=== PATIENT | female | born 1965 | race Hispanic/Latino ===

== ENCOUNTER 2018-08-23 22:02 | Emergency (ER) | payer OTHER ==
[~2018-08-23 22:02] MED LIST: BACL5TAB PO; CALC0.253 PO; LEVO200T5 PO; MECL-111 PO
== END 2018-08-24 00:05 | disposition home or self-care (01) ==
LOC: EDH 22:02
DX: S00.12XA Contusion of left eyelid and periocular area, initial encounter (principal); R03.0 Elevated blood-pressure reading, without diagnosis of hypertension; Z90.710 Acquired absence of both cervix and uterus; Z98.890 Other specified postprocedural states; W18.39XA Other fall on same level, initial encounter; Y93.01 Activity, walking, marching and hiking; Y92.488 Other paved roadways as the place of occurrence of the external cause; Y99.8 Other external cause status
CPT/HCPCS: 70450; 70486

== ENCOUNTER 2019-10-23 12:58 | Emergency (ER) | payer OTHER, SELFPAY ==
[~2019-10-23 12:58] MED LIST changes: -MECL-111 PO; +MECL-160 PO
[2019-10-23 15:01] LABS: RAPID GROUP A STREP NEGATIVE (NEGATIVE)
== END 2019-10-23 16:58 | disposition home or self-care (01) ==
LOC: EDH 12:58
DX: B34.9 Viral infection, unspecified (principal); Z20.828 Contact with and (suspected) exposure to other viral communicable diseases; Z90.710 Acquired absence of both cervix and uterus
CPT/HCPCS: 36415; 87804 ×2; 87880; 99283; U0003

== ENCOUNTER 2021-12-13 16:44 | Emergency (ER) | payer OTHER ==
[~2021-12-13] VITALS: Ht 165.1 cm; Wt 81.2 kg
[2021-12-13 17:30] VITALS: BP 147/69
[2021-12-13] MEDS ORDERED: NAPR-1180 PO (18:46)
[2021-12-13] MEDS ORDERED: TRAM50TA4 PO (18:46)
== END 2021-12-13 18:56 | disposition home or self-care (01) ==
LOC: EDH 16:44
DX: M23.91 Unspecified internal derangement of right knee (principal); Z79.899 Other long term (current) drug therapy
CPT/HCPCS: 73562; 93971

== ENCOUNTER 2023-06-16 13:32 | Emergency (ER) | payer OTHER ==
[~2023-06-16] VITALS: Ht 162.6 cm; Wt 81.2 kg
[~2023-06-16 13:32] MED LIST changes: -MECL-160 PO; +MECL-302 PO; +NAPR-1180 PO; +TRAM50TA4 PO
[2023-06-16 14:03] LABS: BASOPHILS # (AUTO) 0.02 K/uL (0.00-0.20); BASOPHILS % (AUTO) 0.5 % (0.0-5.0); HEMATOCRIT 39.4 % (36-48); IMMATURE GRANULOCYTE ABSOLUTE 0.01 K/uL (0-1); LYMPHOCYTES # (AUTO) 1.6 K/uL (1.0-4.8); LYMPHOCYTES % (AUTO) 40.3 % (21.0-51.0); MEAN CORPUSCULAR HEMOGLOBIN 30.1 pg (27.0-33.0); MEAN CORPUSCULAR HGB CONC 33.8 g/dL (32.0-36.0); MEAN CORPUSCULAR VOLUME 89.1 fL (79-99); MONOCYTES # (AUTO) 0.6 K/uL (0.1-1.0); MONOCYTES % (AUTO) 14.3 % (3.0-13.0); NEUTROPHILS # (AUTO) 1.8 K/uL (1.8-7.7); NEUTROPHILS % (AUTO) 44.6 % (40.0-77.0); PLATELET COUNT (AUTO) 213 K/uL (130-400); RED BLOOD CELL COUNT(AUTO) 4.42 MIL/uL (4.00-5.50); RED CELL DISTRIBUTION WIDTH 12.9 % (11.0-15.5)
[2023-06-16 14:12] LABS: CREATININE 0.8 mg/dL (0.5-1.5); POTASSIUM 3.3 mmol/L (3.5-5.1)
[2023-06-16 14:16] LABS: ALBUMIN 3.5 g/dL (3.5-5.0); BILIRUBIN,TOTAL 0.4 mg/dL (0.2-1.0); MAGNESIUM 1.9 mg/dL (1.80-2.40); TOTAL PROTEIN, SERUM 8.1 g/dL (6.0-8.3)
[2023-06-16 14:18] LABS: SARS-CoV-2, RNA, NAAT NEGATIVE SARS CoV-2 (NEGATIVE)
[2023-06-16 14:26] LABS: INFLUENZA TYPE A Negative For Type A (NEGATIVE); INFLUENZA TYPE B Negative For Type B (NEGATIVE)
[2023-06-16 15:05] LABS: B-TYPE NATRIURETIC PEPTIDE 59 pg/mL (0-100)
[2023-06-16] MEDS ORDERED: LEVO-70 PO (16:00)
[2023-06-16] MEDS ORDERED: AUD IH (16:00)
[2023-06-16] MEDS: CEFTRIAXONE 1G VIAL IM ONE (16:30)
[2023-06-16] MEDS: LEVOFLOXACIN 500 MG TABLET PO ONE (16:31)
[2023-06-16 16:44] VITALS: BP 135/71; PULSE 65; RESP 18; O2SAT 96
== END 2023-06-16 16:47 | disposition home or self-care (01) ==
LOC: EDH 13:32
DX: J45.909 Unspecified asthma, uncomplicated (principal); R06.09 Other forms of dyspnea; E03.9 Hypothyroidism, unspecified; Z20.822 Contact with and (suspected) exposure to COVID-19; Z79.899 Other long term (current) drug therapy; Z90.710 Acquired absence of both cervix and uterus; Z98.890 Other specified postprocedural states
CPT/HCPCS: 99285; 71045; 87635; 83735; 84484; 80053; 83880; 85025; 87804 ×2; 36415; 96372; 93005; J0696

== ENCOUNTER 2024-08-20 17:05 | Emergency (ER) | payer SELFPAY ==
[~2024-08-20] VITALS: Ht 165.1 cm; Wt 81.6 kg
[~2024-08-20 17:05] MED LIST changes: +AUD IH; +LEVO-70 PO
[2024-08-20] MEDS: ASPIRIN 325MG TAB PO ONE (17:44)
[2024-08-20 17:45] LABS: BASOPHILS # (AUTO) 0.03 K/uL (0.00-0.20); BASOPHILS % (AUTO) 0.4 % (0.0-5.0); HEMATOCRIT 39.7 % (36-48); IMMATURE GRANULOCYTE ABSOLUTE 0.01 K/uL (0-1); LYMPHOCYTES # (AUTO) 2.6 K/uL (1.0-4.8); LYMPHOCYTES % (AUTO) 36.8 % (21.0-51.0); MEAN CORPUSCULAR HEMOGLOBIN 30.2 pg (27.0-33.0); MEAN CORPUSCULAR HGB CONC 32.5 g/dL (32.0-36.0); MONOCYTES # (AUTO) 0.6 K/uL (0.1-1.0); MONOCYTES % (AUTO) 8.3 % (3.0-13.0); NEUTROPHILS # (AUTO) 3.8 K/uL (1.8-7.7); NEUTROPHILS % (AUTO) 54.4 % (40.0-77.0); PLATELET COUNT (AUTO) 257 K/uL (130-400); RED BLOOD CELL COUNT(AUTO) 4.27 MIL/uL (4.00-5.50); RED CELL DISTRIBUTION WIDTH 13.2 % (11.0-15.5)
[2024-08-20] MEDS: NITROGLYCERIN 1GM OINT 1 INCH/1GM TD ONE (17:45)
--- NOTE | 2024-08-20 17:47 | ERN ---
ED Note History of Present Illness Stated Complaint: CHEST WALL PAIN Chief Complaint: Chest Wall Pain Time Seen by MD: 17:06 Time Seen by Midlevel: 17:06 Dictation: The patient is a 58-year-old female with a history of thyroidectomy, hysterectomy who presents to the emergency department with midsternal chest pain onset last night. Patient reports a feeling and sensation of pressure in associated with some shortness of breath and lightheadedness. Patient reports pain to be constant and it started around 5:00 a.m. yesterday. Denies any fevers, cough, upper respiratory symptoms. Allergies: Coded Allergies: No Known Drug Allergies (Verified Allergy, Unknown, 12/02/17) Home Meds Active Scripts Albuterol Sulfate (Albuterol Sulfate) 2.5 Mg/0.5 Ml Vial.neb, 2.5 MG IH Q6H for wheezing/sob, #20 INH 0 Refills Prov:STEPHANIE SAHU RN MANAGER 06/16/23 Levofloxacin (Levofloxacin) 500 Mg Tablet, 500 MG PO DAILY for 10 Days, #10 TAB Prov:STEPHANIE SAHU NP 06/16/23 Tramadol Hcl (Tramadol HCl) 50 Mg Tablet, 50 MG PO QID for pain, #16 TAB 0 Refills Prov:MEETA FLAHERTY MD 12/13/21 Naproxen (Naprosyn) 500 Mg Tablet, 500 MG PO BIDPC for 10 Days, #20 TAB 0 Refills Prov:MEETA FLAHERTY MD 12/13/21 Levothyroxine Sodium (Synthroid) 200 Mcg Tablet, 250 MCG PO ACBKFST for 30 Days, #30 TAB Prov:ELLIOT RODGERS MD 12/04/17 Reported Medications Meclizine HCl (Meclizine HCl) 25 Mg Tablet, 25 MG PO DAILY, TAB 12/03/17 Baclofen (Baclofen) 5 Mg Tablet, 5 MG PO HSPRN PRN for MUSCLE SPASMS, TAB 12/03/17 Calcitriol (Calcitriol) 0.25 Mcg Capsule, 0.25 MCG PO DAILY, CAP 12/03/17 Past Medical History Past Medical History: Hypothyroid Surgical History: Hysterectomy Surgical History Other: THYROIDECTOMY Social History: Negative, Lives alone History: Not Applicable RN Note Reviewed/Agreed w/PFSH: Yes Review of System Dictation Constitutional: Negative for fever,chills, and weight loss Eyes: Negative for injury, pain,redness, and discharge ENT: Negative for injury,pain or swelling Cardiovascular: Negative for palpitations, and edema positive for chest pain Respiratory: Negative for, cough, and wheezing, positive for shortness of breath Abdomen/GI: Negative for abdominal pain, nausea, vomiting, diarrhea, and constipation Back: Negative for injury and pain : Negative for injury, bleeding and discharge MS/Extremity: Negative for injury and deformity Skin: Negative for rash, and discoloration Neuro: Negative for headache, weakness, numbness, tingling, and seizure Psych: Negative for suicide ideation, homicidal ideation, and hallucinations Initial Vital Sign VS Vital Signs Date Time Temp Pulse Resp B/P (MAP) Pulse Ox O2 Delivery O2 Flow Rate FiO2 08/20/24 17:05 98.2 60 16 147/72 99 Room Air 0 08/20/24 17:05 21 Physical Exam Dictation Vital Signs reviewed General Appearance: Alert, oriented x 3, no acute distress, well developed, nourished. Head and Face: non-traumatic. Eyes: PERRL, pink conjunctivas, eyelid no trauma, anterior chamber with arcus senilis. Ears: Pinnas intact and no signs of trauma or erythema ear canals clear and no discharge TM no erythema Nose: No discharge, no bleeding. Oropharynx: Mouth normal, tongue pink. pharynx clear,no erythema, tonsils no exudates, no abscesses noted, mucous membrane moist Neck: Supple, non-tender, no thyromegaly, no masses, no JVD, no bruits Breast:Deferred Chest:No tenderness, no crepitus, no paradoxical movement, no retractions Lungs:Clear, well-ventilated, symmetric, no rales, no wheezing, no rhonchi, no stridor, good breath sounds bilaterally Heart: Regular rate, regular rhythm, no murmur, no gallops Vascular: no peripheral edema, Abdomen: Soft, positive bowel sounds, nondistended, no guarding, nontender, no rebound, no masses no hepatomegaly, no splenomegaly, no Rivas's sign, no hernias. Rectal: Deferred Genital: Deferred Neurological: Normal speech, motor function intact, sensory function intact Musculoskeletal: Neck nontender, full range of motion, back nontender, full range of motion, Extremities: nontender, full range of motion Skin: Color pink, dry, no turgor, no rash, no lacerations, no abrasions, no contusions. Lymphatic: Deferred Results (Laboratory/Radiology) Laboratory/Radiology Laboratory Tests Test 08/20/24 17:17 08/20/24 17:34 08/20/24 18:46 Urine Color COLORLESS (YELLOW) Urine Appearance CLEAR (CLEAR) Urine pH 6.5 (5.0-8.0) Urine Specific Mcandrews 1.005 (1.001-1.031) Urine Protein NEGATIVE mg/dL (NEGATIVE) Urine Glucose (UA) NEGATIVE mg/dL (NEGATIVE) Urine Ketones NEGATIVE mg/dL (NEGATIVE) Urine Occult Blood NEGATIVE (NEGATIVE) Urine Nitrate NEGATIVE (NEGATIVE) Urine Bilirubin NEGATIVE mg/dL (NEGATIVE) Urine Urobilinogen 0.2 mg/dL (0.2-1.0) Urine Leukocyte Esterase NEGATIVE Alejandrina/uL Urine RBC 0-1 /HPF (0-1) Urine WBC 2-5 /HPF (0-1) H Urine Squamous Epithelial Cells RARE /HPF (0-2) Urine Bacteria RARE /HPF (None Seen) White Blood Count 7.0 K/uL (4.8-10.8) Red Blood Count 4.27 MIL/uL (4.00-5.50) Hemoglobin 12.9 g/dL (12.0-16.0) Hematocrit 39.7 % (36-48) Mean Corpuscular Volume 93.0 fL (79-99) Mean Corpuscular Hemoglobin 30.2 pg (27.0-33.0) Mean Corpuscular Hemoglobin Concent 32.5 g/dL (32.0-36.0) Red Cell Distribution Width 13.2 % (11.0-15.5) Platelet Count 257 K/uL (130-400) Mean Platelet Volume 9.4 fL (7.5-10.5) Immature Granulocyte % (Auto) 0.1 % (0-1) Neutrophils (%) (Auto) 54.4 % (40.0-77.0) Lymphocytes (%) (Auto) 36.8 % (21.0-51.0) Monocytes (%) (Auto) 8.3 % (3.0-13.0) Eosinophils (%) (Auto) 0.0 % (0.0-8.0) Basophils (%) (Auto) 0.4 % (0.0-5.0) Neutrophils # (Auto) 3.8 K/uL (1.8-7.7) Lymphocytes # (Auto) 2.6 K/uL (1.0-4.8) Monocytes # (Auto) 0.6 K/uL (0.1-1.0) Eosinophils # (Auto) 0.00 K/uL (0.00-0.70) Basophils # (Auto) 0.03 K/uL (0.00-0.20) Absolute Immature Granulocyte (auto 0.01 K/uL (0-1) Nucleated Red Blood Cells 0.0 % (0.0-0.19) Sodium Level 140 mmol/L (136-145) Potassium Level 3.6 mmol/L (3.5-5.1) Chloride Level 101 mmol/L (101-111) Carbon Dioxide Level 31 mmol/L (21-32) Blood Urea Nitrogen 13 mg/dL (7-18) Creatinine 0.8 mg/dL (0.5-1.0) Glomerular Filtration Rate Calc 84 mL/min (>90) Random Glucose 83 mg/dL (70-105) Total Calcium 8.3 mg/dL (8.5-10.1) L Magnesium Level 1.90 mg/dL (1.80-2.40) Total Creatine Kinase 126 U/L (21-232) # Troponin I High Sensitivity < 4 ng/L (4-50) L < 4 ng/L (4-50) L B-Type Natriuretic Peptide 62 pg/mL (0-100) Lipase 54 U/L (16-77) REASON: cp ORDERING PHYSICIAN: KRISTY RESENDIZ PROCEDURE: CXR1VW - CHEST 1VW CHEST 1VW HISTORY: Chest pain COMPARISON: 06/16/2023 FINDINGS: A frontal projection of the chest was obtained. No acute pulmonary infiltrates is seen. The heart is borderline enlarged. Degenerative changes are seen. Prominent interstitial markings are seen. No evidence of aortic calcification is seen. IMPRESSION: 1. No acute pulmonary infiltrate is seen. Labs Reviewed?: Yes EKG: (+) rhythm (Sinus rhythm) EKG Comment: Date:08/20/2024 Time:1703 Ventricular rate:55 NH interval:140 QRS duration:90 QT/QTc:466 EKG interpretation: Sinus bradycardia Reviewed by ED Attending no STEMI ED Course ED Course Orders Procedure Category Date Status Time 12 Lead Ekg Tracing- EKG 08/20/24 Complete Technical 17:06 Cbc With Differential LAB 08/20/24 Complete 17:20 B-Type Natriuretic LAB 08/20/24 Complete Peptide 17:20 Chest 1vw RAD 08/20/24 Resulted 17:20 Nitroglycerin 1gm PHA 08/20/24 Complete Oint (Nitroglycerin 1g 17:30 Magnesium LAB 08/20/24 Complete 17:20 Creatine Kinase, Total LAB 08/20/24 Complete 17:20 Troponin I High LAB 08/20/24 Complete Sensitivity 17:20 Aspirin 325mg Tab PHA 08/20/24 Complete (Aspirin 325mg Tab) 17:30 Urinalysis Profile LAB 08/20/24 Complete 17:20 Basic Metabolic Panel LAB 08/20/24 Complete 17:20 Lipase LAB 08/20/24 Complete 17:20 Troponin I High LAB 08/20/24 Complete Sensitivity 18:33 Current Medications Medications (Trade) Dose Ordered Sig/Francoise Route PRN Reason Start Time Stop Time Status Last Admin Dose Admin Aspirin (Aspirin 325mg Tab) 325 mg ONCE ONCE PO 08/20/24 17:30 08/20/24 17:31 DC 08/20/24 17:44 Nitroglycerin (Nitroglycerin 1gm Oint) 1 inch ONCE ONCE TD 08/20/24 17:30 08/20/24 17:31 DC 08/20/24 17:45 Vital Signs Date Time Temp Pulse Resp B/P (MAP) Pulse Ox O2 Delivery O2 Flow Rate FiO2 08/20/24 18:05 98.2 58 17 152/74 97 Room Air* 0 21 08/20/24 17:05 98.2 60 16 147/72 99 Room Air* 0 21 08/20/24 17:05 98.2 60 16 147/72 99 Room Air 0 HEART Score Response (Comments) Value History: Moderate suspicion (+1) 1 EKG: Normal 0 Age: 45-65yrs (+1) 1 Risk Factors: No known risk factors (0) 0 Initial Troponin: Normal limit (0) 0 Total 2 Medical Decision Making MDM The patient is a 58-year-old female with a history of thyroidectomy, hysterectomy who presents to the emergency department with midsternal chest pain onset last night. Patient reports a feeling and sensation of pressure in associated with some shortness of breath and lightheadedness. Patient reports pain to be constant and it started around 5:00 a.m. yesterday. Denies any fevers, cough, upper respiratory symptoms. CBC showed no leukocytosis, no anemia, chemistry showed no electrolyte imbalance, negative troponin x2, negative lipase, negative BNP, chest x-ray showed no acute infiltrates. Discussed labs and imaging with the patient who at this time agrees to follow up with PCP. Reports she has an appointment in two days. Patient denies anymore chest pain. Patient with low risk for any cardiac etiology. In no acute distress, stable vital signs. Patient will be discharged to follow up with PCP. Instructed to return if symptoms worsen. Differential diagnosis: ACS, pneumonia, pneumothorax, CHF exacerbation, electrolyte imbalance, dehydration, anxiety Need for hospitalization: Patient does not meet criteria for hospitalization. There are no social concerns with this patient. DX & DISP Disposition: Discharge Departure Impression: Primary Impression: Chest pain Condition: Stable Additional Instructions: Please follow up with your primary doctor in 1-2 days. If symptoms worsen please return to ER. FOLLOW-UP WITH PRIMARY CARE PROVIDER IN 1 TO 2 DAYS. TAKE MEDICATIONS DIRECTED HERE IN THE EMERGENCY ROOM. OKAY TO CONTINUE HOME MEDICATIONS UNLESS OTHERWISE DISCUSSED DURING YOUR VISIT IN THE EMERGENCY ROOM TODAY. RETURN TO YOUR NEAREST EMERGENCY ROOM IF SYMPTOMS WORSEN OR IF THERE IS NO IMPROVEMENT. CALL 911 IF YOU NEED IMMEDIATE ASSISTANCE. TAKE TYLENOL OR MOTRIN [id number] NEEDED AND IF NO CONTRAINDICATIONS ARE PRESENT. INCREASE ORAL HYDRATION. A WOUND CULTURE OR URINE CULTURE WAS ORDERED HERE IN THE EMERGENCY ROOM DEPARTMENT PLEASE FOLLOW-UP WITH PRIMARY CARE PROVIDER AND ADVISE THEM TO GET REPEAT PORTS FROM OUR FACILITY. IF YOU HAD ANY TORREY WRAP/SPLINTS THAT WERE APPLIED HERE, PLEASE DO NOT REMOVE THEM UNTIL YOU SEE YOUR PRIMARY CARE OR SPECIALTY. Referrals: SELF,REFERRAL (PCP) Time of Disposition: 19:18 I have reviewed the case, and I agree with, Diagnosis and Plan KRISTY RESENDIZ Aug 20, 2024 17:47
[2024-08-20 17:53] LABS: APPEARANCE,URINE CLEAR (CLEAR); BILIRUBIN,URINE NEGATIVE (NEGATIVE); COLOR,URINE COLORLESS (YELLOW); GLUCOSE, URINE (UA) NEGATIVE (NEGATIVE); KETONES,URINE NEGATIVE (NEGATIVE); LEUKOCYTE ESTERASE ,URINE NEGATIVE Leu/uL (NEGATIVE); NITRATE,URINE NEGATIVE (NEGATIVE); OCCULT BLOOD,URINE NEGATIVE (NEGATIVE); PH,URINE 6.5 (5.0-8.0); PROTEIN,URINE NEGATIVE (NEGATIVE); UROBILINOGEN,URINE 0.2 mg/dL (0.2-1.0)
[2024-08-20 17:54] LABS: CREATININE 0.8 mg/dL (0.5-1.0); POTASSIUM 3.6 mmol/L (3.5-5.1)
[2024-08-20 17:56] LABS: ADD UA MICROSCOPIC YES
[2024-08-20 17:57] LABS: BACTERIA,URINE RARE /HPF (None Seen); RBC,URINE 0-1 /HPF (0-1); SQUAMOUS EPITHELIAL CELL,UR RARE /HPF (0-2)
[2024-08-20 17:59] LABS: MAGNESIUM 1.9 mg/dL (1.80-2.40)
[2024-08-20 18:09] LABS: B-TYPE NATRIURETIC PEPTIDE 62 pg/mL (0-100)
--- NOTE | 2024-08-20 18:43 | EKG ---
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
--- NOTE | 2024-08-20 19:10 | HMCIMG ---
CHEST 1VW HISTORY: Chest pain COMPARISON: 06/16/2023 FINDINGS: A frontal projection of the chest was obtained. No acute pulmonary infiltrates is seen. The heart is borderline enlarged. Degenerative changes are seen. Prominent interstitial markings are seen. No evidence of aortic calcification is seen. IMPRESSION: 1. No acute pulmonary infiltrate is seen.
[2024-08-20 20:03] VITALS: BP 138/62; PULSE 65; RESP 18; TEMP 98; O2SAT 98
== END 2024-08-20 20:04 | disposition home or self-care (01) ==
LOC: EDH 17:05
DX: R07.2 Precordial pain (principal); E03.9 Hypothyroidism, unspecified; Z79.899 Other long term (current) drug therapy; Z90.710 Acquired absence of both cervix and uterus; Z98.890 Other specified postprocedural states
CPT/HCPCS: 36415; 71045; 80048; 81001; 82550; 83690; 83735; 83880; 84484; 85025; 93005; 99285